=== PATIENT | male | born 1965 | race American Indian/Alaskan Native ===

== ENCOUNTER 2022-03-02 07:49 | Emergency (ER) | payer BC ==
[2022-03-02 08:48] LABS: Basophils # (Auto) 0.1 K/mm3 (0.0-0.1); Basophils % (Auto) 0.6 % (0.0-1.8); Eosinophils # (Auto) 0.3 K/mm3 (0.0-0.4); Eosinophils % (Auto) 2.7 % (0.0-4.3); Hematocrit 44.1 % (35.5-45.6); Hemoglobin 14.8 gm/dl (11.8-15.2); Lymphocytes # (Auto) 3.1 K/mm3 (1.2-5.4); Lymphocytes % (Auto) 31.9 % (13.4-35.0); Mean Corpuscular HGB Conc 34 % (32-34); Mean Corpuscular Volume 87 fl (84-94); Monocytes # (Auto) 1.1 K/mm3 (0.0-0.8); Monocytes % (Auto) 11.8 % (0.0-7.3); Platelet Count 338 K/mm3 (140-440); Red Blood Count 5.08 M/mm3 (3.65-5.03); Red Cell Distribution Width 13.6 % (13.2-15.2)
[2022-03-02 09:11] LABS: Alanine Aminotransferase 16 units/L (7-56); Albumin 3.7 g/dL (3.9-5); BUN/Creatinine Ratio 10; Blood Urea Nitrogen 10 mg/dL (9-20); Calcium 9.4 mg/dL (8.4-10.2); Hemolysis Index 2
[2022-03-02 09:13] LABS: Bilirubin,Direct < 0.2 mg/dL (0-0.2)
[2022-03-02 10:31] LABS: Bilirubin,Urine Negative (Negative); Blood,Urine Small (Negative); Color,Urine Yellow (Yellow); Protein,Urine <15 mg/dL mg/dL (Negative); Urobilinogen,Urine < 2.0 mg/dL (<2.0)
[2022-03-02] MEDS ORDERED: ONDANSETRON 4 MG/2 ML INJ IV ONE (13:09)
[2022-03-02] MEDS ORDERED: FAMOTIDINE 20 MG/2 ML INJ IV ONE (13:09)
[2022-03-02] MEDS ORDERED: MORPHINE 4 MG/1 ML INJ IV ONE (13:09)
[2022-03-02] MEDS ORDERED: SODIUM CHLORIDE 0.9% 1000 ML 1,000 ML IV ONE (13:10)
[2022-03-02 13:58] VITALS: BP 134/83
--- NOTE | 2022-03-02 15:41 | Cat Scan Report ---
CT ABDOMEN AND PELVIS WITH CONTRAST INDICATION: Diffuse abdominal pain, duration 4 weeks CONTRAST: 100 cc Omnipaque 300 IV COMPARISON: None available. All CT scans at this location are performed using CT dose reduction for ALARA by means of automated e xposure control. FINDINGS: Lung bases show no acute infiltrates. Calcified granuloma in right lower lobe and calcified right hilar nodes seen. Descending thoracic aorta is visualized in its mid to distal portion and is prominently tortuous lying in the lower chest in the right paravertebral area instead of the left tho ugh crossing to midline at the hiatus. I have no other imaging available but possibly this could be a right-sided thoracic aorta. Normally positioned heart is seen and the aortic root anatomy appears no rmal. No pneumoperitoneum. No lymphadenopathy. No free fluid. Gallbladder and bile ducts normal. No abnorma lities seen of pancreas, adrenals, or spleen. Mild fatty infiltration of liver without significant en largement or focal lesion. Both kidneys show cystic lesions. In the upper pole of left kidney a simpl e cyst is noted measuring 5.8 cm. Two mildly complex cystic lesions are seen in the upper pole of the right kidney measuring 18 mm and 17 mm with peripheral calcification and mild internal complexity. I nternal density of both is in the water range however at 12 and 14 Hounsfield units respectively. No urinary obstruction. No bowel obstruction. Colonic diverticulosis without obvious diverticulitis. Appendix normal in size without obvious inflammation. Pelvic masses. No significant abdominal wall herniation. The stomach as an unusual appearance. In the fundus and upper on the there are is a question of irreg ular wall thickening without definite mass. No surrounding inflammation. No evidence of perforation o r obstruction. No definite ulceration seen. Duodenum without obvious abnormality. IMPRESSION: 1. Unusual appearance of the stomach as above raising the question of wall edema as could be seen wit h gastritis but is nonspecific. An infiltrative process such as lymphoma is not excluded. I do not se e an obvious complication such as ulceration or perforation and no obstructive changes are seen. Clin ical assessment is needed and follow-up CT may be useful. Endoscopic evaluation may be needed if this is persistent. 2. Right-sided position of the descending aorta probably is due to marked tortuosity but the possibil ity of a right-sided arch should be considered. A chest x-ray may be helpful. 3. Complex cysts in the upper pole of the right kidney. Recommend follow-up though probably these are benign. Signer Name: Roddy Peralta MD Signed: 03/02/2022 3:36 PM Workstation Name: [id number]
--- NOTE | 2022-03-02 17:26 | XRay Report ---
XR chest 1V ap INDICATION / CLINICAL INFORMATION: chest pain. COMPARISON: None available. FINDINGS: SUPPORT DEVICES: None. HEART /PULMONARY VASCULATURE: The thoracic aorta is markedly tortuous. Suggestion of right-sided arch . Heart size is normal. No significant pulmonary vasculature congestion. LUNGS / PLEURA: Lungs are clear. No pneumothorax. ADDITIONAL FINDINGS: No significant additional findings. IMPRESSION: 1. No acute findings. Signer Name: London Guzmán MD Signed: 03/02/2022 5:22 PM Workstation Name: [id number]
--- NOTE | 2022-03-02 18:11 | Emergency Department Report ---
ED Abdominal Pain HPI - General Chief Complaint: Abdominal Pain Stated Complaint: ABD PAIN/RECTAL BLEEDING/EMESIS Source: patient Mode of arrival: Ambulatory Limitations: No Limitations - History of Present Illness Initial Comments: Patient is a 57-year-old -[place] male with a history of hypertension, seizures and chronic alcoholic pancreatitis who presents to the ED with complaint of acute onset persistent intermittent periumbilical abdominal pain that radiates to the epigastric area and his chest for the last 3 weeks with nausea and vomiting. Patient states that the symptoms are worse with food or vomiting. Patient states that he was initially evaluated extensively at another hospital emergency department in [facility] and no acute findings were discussed with him. 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 Patient denies fever, chills, dizziness, syncope, chest pain, shortness of breath, cough, sore throat, hematochezia, hematemesis, diarrhea, dysuria, urinary frequency and urgency, hematuria or testicular pain. MD Complaint: abdominal pain, other (Nausea and vomiting) -: Gradual, week(s) (3) Location: periumbilical, epigastric Radiation: epigastric Migration to: no migration Severity scale (0 -10): 7 Quality: cramping, aching, sharp Consistency: intermittent Improves With: nothing Worsens With: eating, vomiting Associated Symptoms: denies other symptoms, nausea, vomiting. denies: diarrhea, fever, chills, constipation, dysuria, hematemesis, hematochezia, melena, hematuria, anorexia, syncope, other - Related Data Previous Rx's Medication Instructions Recorded Last Taken Type Dicyclomine [Bentyl] 20 mg PO Q6H PRN #30 tablet 03/02/22 Unknown Rx Famotidine [Pepcid] 20 mg PO BID #60 tablet 03/02/22 Unknown Rx Omeprazole 40 mg PO DAILY #60 cap 03/02/22 Unknown Rx Ondansetron [Zofran Odt] 4 mg PO Q8HR PRN #20 tab.rapdis 03/02/22 Unknown Rx Allergies Allergy/AdvReac Type Severity Reaction Status Date / Time phenytoin [From Dilantin] Allergy Itching Verified 03/02/22 08:19 ED Review of Systems ROS: Stated complaint: ABD PAIN/RECTAL BLEEDING/EMESIS Other details as noted in HPI Constitutional: denies: chills, fever Eyes: denies: eye pain, eye discharge, vision change ENT: denies: ear pain, throat pain Respiratory: denies: cough, shortness of breath, wheezing Cardiovascular: denies: chest pain, palpitations Endocrine: no symptoms reported Gastrointestinal: abdominal pain, nausea, vomiting. denies: diarrhea Genitourinary: denies: urgency, dysuria Musculoskeletal: denies: back pain, joint swelling, arthralgia Skin: denies: rash, lesions Neurological: denies: headache, weakness, paresthesias Psychiatric: denies: anxiety, depression Hematological/Lymphatic: denies: easy bleeding, easy bruising ED Past Medical Hx - Past Medical History Hx Hypertension: Yes Hx Seizures: Yes Additional medical history: Pancreatitis ( reports he has not drank since 2000), kidney stone - Surgical History Additional Surgical History: kidney stone removal - Social History Smoking Status: Never Smoker - Medications Home Medications: Home Medications Medication Instructions Recorded Confirmed Last Taken Type Dicyclomine [Bentyl] 20 mg PO Q6H PRN #30 tablet 03/02/22 Unknown Rx Famotidine [Pepcid] 20 mg PO BID #60 tablet 03/02/22 Unknown Rx Omeprazole 40 mg PO DAILY #60 cap 03/02/22 Unknown Rx Ondansetron [Zofran Odt] 4 mg PO Q8HR PRN #20 tab.rapdis 03/02/22 Unknown Rx ED Physical Exam - General Limitations: No Limitations General appearance: alert, in no apparent distress - Head Head exam: Present: atraumatic, normocephalic, normal inspection - Eye Eye exam: Present: normal appearance, PERRL, EOMI Pupils: Present: normal accommodation - ENT ENT exam: Present: normal exam, normal orophraynx, mucous membranes moist, TM's normal bilaterally, normal external ear exam - Neck Neck exam: Present: normal inspection, full ROM - Respiratory Respiratory exam: Present: normal lung sounds bilaterally. Absent: respiratory distress, wheezes, rales, rhonchi, chest wall tenderness, accessory muscle use, decreased breath sounds, prolonged expiratory - Cardiovascular Cardiovascular Exam: Present: normal rhythm, bradycardia, normal heart sounds. Absent: systolic murmur, diastolic murmur, rubs, gallop - GI/Abdominal GI/Abdominal exam: Present: soft, tenderness (Palpable periumbilical and epigastric tenderness), normal bowel sounds. Absent: guarding, rebound, hyperactive bowel sounds, hypoactive bowel sounds, organomegaly - Extremities Exam Extremities exam: Present: normal inspection, full ROM, normal capillary refill. Absent: tenderness - Back Exam Back exam: Present: normal inspection, full ROM. Absent: tenderness, CVA tenderness (R), CVA tenderness (L), muscle spasm, paraspinal tenderness, v ertebral tenderness - Neurological Exam Neurological exam: Present: alert, oriented X3, CN II-XII intact, normal gait, reflexes normal - Psychiatric Psychiatric exam: Present: normal affect, normal mood - Skin Skin exam: Present: warm, dry, intact, normal color. Absent: rash ED Course Vital Signs 03/02/22 03/02/22 08:13 13:57 Temperature 98.9 F Pulse Rate 59 L 85 Respiratory 12 17 Rate Blood Pressure 121/94 Blood Pressure 134/83 [Right] O2 Sat by Pulse 100 99 Oximetry ED Medical Decision Making - Lab Data Result diagrams: 03/02/22 08:26 03/02/22 08:26 - Radiology Data Radiology results: report reviewed, image reviewed [facility] [address] [place] [address] XRay Report Signed Patient: MARLENI SCANLON MR#: [id number] : 1965 Acct:[id number] Age/Sex: 57 / M ADM Date: 03/02/22 Loc: ED Attending Dr: Ordering Physician: FRANCES LEAHY Date of Service: 03/02/22 Procedure(s): XR chest 1V ap Accession Number(s): [id number] cc: FRANCES LEAHY Fluoro Time In Minutes: XR chest 1V ap INDICATION / CLINICAL INFORMATION: chest pain. COMPARISON: None available. FINDINGS: SUPPORT DEVICES: None. HEART /PULMONARY VASCULATURE: The thoracic aorta is markedly tortuous. Sugge stion of right-sided arch. Heart size is normal. No significant pulmonary vasculature congestion. LUNGS / PLEURA: Lungs are clear. No pneumothorax. ADDITIONAL FINDINGS: No significant additional findings. IMPRESSION: 1. No acute findings. Signer Name: Carroll Guzmán MD Signed: 03/02/2022 5:22 PM Workstation Name: [id number] Transcribed By: JS Dictated By: CARROLL GUZMÁN MD Electronically Authenticated By: CARROLL GUZMÁN MD Signed Date/Time: 03/02/221721 DD/ 17 TD/TT: Print Cancel [facility] [address] [place] [address] Cat Scan Report Signed Patient: MARLENI SCANLON MR#: [id number] : 1965 Acct:[id number] Age/Sex: 57 / M ADM Date: 03/02/22 Loc: ED Attending Dr: Ordering Physician: FRANCES LEAHY Date of Service: 03/02/22 Procedure(s): CT abdomen pelvis w con Accession Number(s): [id number] cc: FRANCES LEAHY CT ABDOMEN AND PELVIS WITH CONTRAST INDICATION: Diffuse abdominal pain, duration 4 weeks CONTRAST: 100 cc Omnipaque 300 IV COMPARISON: None available. All CT scans at this location are performed using CT dose reduction for ALARA by means of automated exposure control. FINDINGS: Lung bases show no acute infiltrates. Calcified granuloma in right lower lobe and calcified right hilar nodes seen. Descending thoracic aorta is visualized in its mid to distal portion and is prominently tortuous lying in the lower chest in the right paravertebral area instead of the left though crossing to midline at the hiatus. I have no other imaging available but possibly this could be a right-sided thoracic aorta. Normally positioned heart is seen and the aortic root anatomy appears normal. No pneumoperitoneum. No lymphadenopathy. No free fluid. Gallbladder and bile ducts normal. No abnormalities seen of pancreas, adrenals, or spleen. Mild fatty infiltration of liver without significant enlargement or focal lesion. Both kidneys show cystic lesions. In the upper pole of left kidney a simple cyst is noted measuring 5.8 cm. Two mildly complex cystic lesions are seen in the upper pole of the right kidney measuring 18 mm and 17 mm with peripheral calcification and mild internal complexity. Internal density of both is in the water range however at 12 and 14 Hounsfield units respectively. No urinary obstruction. No bowel obstruction. Colonic diverticulosis without obvious diverticulitis. Appendix normal in size without obvious inflammation. Pelvic masses. No significant abdominal wall herniation. The stomach as an unusual appearance. In the fundus and upper on the there are is a question of irregular wall thickening without definite mass. No surrounding inflammation. No evidence of perforation or obstruction. No definite ulceration seen. Duodenum without obvious abnormality. IMPRESSION: 1. Unusual appearance of the stomach as above raising the question of wall edema as could be seen with gastritis but is nonspecific. An infiltrative process such as lymphoma is not excluded. I do not see an obvious complication such as ulceration or perforation and no obstructive changes are seen. Clinical assessment is needed and follow-up CT may be useful. Endoscopic evaluation may be needed if this is persistent. 2. Right-sided position of the descending aorta probably is due to marked tortuosity but the possibility of a right-sided arch should be considered. A chest x-ray may be helpful. 3. Complex cysts in the upper pole of the right kidney. Recommend follow-up though probably these are benign. Signer Name: Roddy Peralta MD Signed: 03/02/2022 3:36 PM Workstation Name: [id number] Transcribed By: GJ Dictated By: Roddy Peralta MD Electronically Authenticated By: Roddy Peralta MD Signed Date/Time: 03/02/22 1536 DD/ 1525 TD/TT: - Medical Decision Making This is a 57-year-old -[place] male with a history of hypertension, seizures and chronic alcoholic pancreatitis who presents to the ED with complai nt of acute onset persistent intermittent periumbilical abdominal pain that radiates to the epigastric area and his chest for the last 3 weeks with nausea and vomiting. Patient states that the symptoms are worse with food or vomiting. Patient states that he was initially evaluated extensively at another hospital emergency department in [facility] and no acute findings were discussed with him. 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 In the ED, patient is alert and oriented x3 and is not in any distress. Patient was treated for pain in the ED, also received antacids and antiemetics in the ED as well as normal saline 1 L IV bolus x1. Lab test results were reviewed and are all nonactionable. Chest x-ray showed no acute cardiopulmonary abnormalities or pneumonitis. Abdomen pelvis CT scan with IV contrast showed unusual appearance of the stomach as above raising the question of wall edema as could be seen with gastritis but is nonspecific. An infiltrative process such as lymphoma is not excluded. I do not see an obvious complication such as ulceration or perforation and no obstructive changes are seen. Clinical assessment is needed and follow- up CT may be useful. Endoscopic evaluation may be needed if this is persistent. In addition, it also showed a right-sided position of the descending aorta p robably is due to marked tortuosity but the possibility of a right-sided arch should be considered. A chest x-ray may be helpful. This imaging also showed complex cysts in the upper pole of the right kidney. Recommend follow-up though probably these are benign. On reevaluation, patient's pain is well controlled medication. Patient will discharge home on pain medications and antacids and advised to follow-up with GI physician Dr. Adelita Cartwright for further evaluation with endoscopy and colonoscopy. Patient was advised to return to the ED immediately if symptoms get worse. - Differential Diagnosis GERD; gastritis; peptic ulcer; pancreatitis; appendicitis; colitis; UTI Critical care attestation.: If time is entered above; I have spent that time in minutes in the direct care of this critically ill patient, excluding procedure time. ED Disposition Clinical Impression: Periumbilical abdominal pain, Nausea and vomiting in adult GERD (gastroesophageal reflux disease) Qualifiers: Esophagitis presence: esophagitis presence not specified Qualified Code(s): K21.9 - Gastro-esophageal reflux disease without esophagitis Disposition: 01 HOME / SELF CARE / HOMELESS Is pt being admited?: No Does the pt Need Aspirin: No Condition: Stable Instructions: Heartburn, Depu-[id number], Abdominal Pain, Adult, [id number]-lb-[id number], Nausea and Vomiting, Adult, Pcig-dz-Tobj, Gastroesophageal Reflux Disease, Adult, Anes-th-Halq, Laparoscopic Talon Fundoplication Additional Instructions: All lab test results were reviewed and are all nonactionable. The chest x-ray showed no acute cardiopulmonary abnormalities or pneumonitis. The abdomen pelvis CT scan with IV contrast showed some unusual appearance of the stomach raising the question of wall edema as could be seen with gastritis but is nonspecific. An infiltrative process such as lymphoma is not excluded. Obvious complication such as ulceration or perforation and no obstructive changes are seen. Clinical assessment is needed and follow-up CT may be useful. Endoscopic evaluation may be needed if this is persistent. Therefore take medication as advised, follow-up with the GI physician Dr. Adelita Cartwright as advised. Contact his office first thing in the morning on Tuesday, March 03, 2022 to schedule a follow-up appointment for endoscopy and colonoscopy. Avoid taking medications like ibuprofen, Aleve or aspirin or Goody's powder to minimize on complications of your symptoms. Return to the ED immediately if symptoms get worse. Prescriptions: Dicyclomine [Bentyl] 20 mg PO Q6H PRN #30 tablet PRN Reason: abdominal pain Omeprazole 40 mg PO DAILY #60 cap Famotidine [Pepcid] 20 mg PO BID #60 tablet Ondansetron [Zofran Odt] 4 mg PO Q8HR PRN #20 tab.rapdis PRN Reason: Nausea Referrals: ADELITA CARTWRIGHT MD [Staff Physician] - 3-5 Days ROSARIO COLLINS MD [Staff Physician] - 7-10 days Time of Disposition: 18:16 Print Language: VINCENTIAN
--- NOTE | 2022-03-04 18:52 | Electrocardiograph Report ---
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
--- NOTE | 2022-03-04 18:55 | Electrocardiograph Report ---
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
== END 2022-03-02 19:11 | disposition home or self-care (01) ==
LOC: ED 07:49
DX: R10.9 Unspecified abdominal pain (principal); R11.2 Nausea with vomiting, unspecified; K21.9 Gastro-esophageal reflux disease without esophagitis; I10 Essential (primary) hypertension
CPT/HCPCS: 36415; 71045; 74177; 80048; 80076; 81001; 83690; 84484; 85025; 93005; 96361; 96374; 96375; 99284; J2270; J2405; J3490; J7030; Q9967